=== PATIENT | male | born 1990 | race Caucasian/White ===

== ENCOUNTER 2022-08-21 18:06 | Emergency (ER) | payer OTHER ==
[~2022-08-21] VITALS: Ht 182.9 cm; Wt 120.0 kg
[2022-08-21 20:25] LABS: CHLORIDE 102 mEq/L (98-107)
[2022-08-21 20:57] LABS: BASOPHILS % 0.9 % (0.0-2.0); EOSINOPHILS % 1.4 % (0.0-5.0); HEMATOCRIT. 39.6 % (42.0-52.0); HEMOGLOBIN. 13.3 g/dL (14.0-18.0); LYMPHOCYTES % 25.3 % (20.0-50.0); MEAN CORPUSCULAR HEMOGLOBIN 30.2 pg (28.0-32.0); MEAN CORPUSCULAR VOLUME 89.5 fL (80.0-94.0); MEAN PLATELET VOLUME 6.6 fl (7.4-10.4); MONOCYTES % 11.8 % (2.0-8.0); NEUTROPHILS % 60.6 % (40.0-76.0); PLATELET 311 x1000/uL (130-400); RED BLOOD CELL COUNT 4.42 mill/uL (4.7-6.1); RED CELL DISTRIBUTION WIDTH 14.9 % (11.6-14.6)
[2022-08-21 22:00] VITALS: BP 123/60
== END 2022-08-21 23:20 | disposition home or self-care (01) ==
LOC: ER 18:06
DX: R68.89 Other general symptoms and signs (principal)
CPT/HCPCS: 36415; 71045; 80053; 85025; 99284

== ENCOUNTER 2024-01-01 14:29 | Emergency (ER) | payer MEDICAID, OTHER ==
[~2024-01-01] VITALS: Ht 190.5 cm; Wt 134.0 kg
[2024-01-01 14:30] VITALS: O2SAT 99
[2024-01-01 15:48] LABS: BASOPHILS % 0.6 % (0.0-2.0); EOSINOPHILS % 0.8 % (0.0-5.0); HEMATOCRIT. 38.7 % (42.0-52.0); HEMOGLOBIN. 12.7 g/dL (14.0-18.0); LYMPHOCYTES % 16.5 % (20.0-50.0); MEAN CORPUSCULAR HEMOGLOBIN 29.8 pg (28.0-32.0); MEAN CORPUSCULAR HGB CONC 32.8 g/dL (31.0-37.0); MEAN CORPUSCULAR VOLUME 90.9 fL (80.0-94.0); MEAN PLATELET VOLUME 6.7 fl (7.4-10.4); MONOCYTES % 9.7 % (2.0-8.0); NEUTROPHILS % 72.4 % (40.0-76.0); PLATELET 317 x1000/uL (130-400); RED BLOOD CELL COUNT 4.26 mill/uL (4.7-6.1); WHITE BLOOD COUNT 8.2 x1000/uL (4.5-11.0)
[2024-01-01 15:54] LABS: CHLORIDE 99 mEq/L (98-107); POTASSIUM 4.2 mEq/L (3.5-5.1); SODIUM 128 mEq/L (136-145)
[2024-01-01 15:55] LABS: CALCIUM 9.3 mg/dL (8.7-10.4); CARBON DIOXIDE 23 mEq/L (21-32)
[2024-01-01 16:00] LABS: CREATININE 0.9 mg/dL (0.6-1.3); GLUCOSE 95 mg/dL (70-105); UREA NITROGEN BLOOD 9 mg/dL (9-23)
[2024-01-01 16:19] LABS: CLARITY URINE CLEAR (CLEAR); COLOR URINE YELLOW (YELLOW); GLUCOSE URINE NEGATIVE (NEGATIVE); KETONES URINE NEGATIVE (NEGATIVE); LEUKOCYTE ESTERASE URINE NEGATIVE (NEGATIVE); NITRITE URINE NEGATIVE (NEGATIVE); OCCULT BLOOD URINE NEGATIVE (NEGATIVE); PH URINE 6.5 (4.5-8.0); PROTEIN URINE NEGATIVE (NEGATIVE); SPECIFIC GRAVITY URINE 1.014 (1.005-1.030)
[2024-01-01] MEDS: SODIUM CHLORIDE 0.9% 100 ML IV ONE (16:35)
[2024-01-01 16:37] LABS: *AMPHETAMINES SCREEN URINE NEGATIVE (NEGATIVE); *BARBITURATES SCREEN URINE NEGATIVE (NEGATIVE); *BENZODIAZEPINES SCREEN URINE NEGATIVE (NEGATIVE); *COCAINE SCREEN URINE NEGATIVE (NEGATIVE); CANNABINOID URINE SCREEN NEGATIVE (NEGATIVE); ECSTASY MDMA SCREEN URINE NEGATIVE (NEGATIVE); METHADONE URINE SCREEN NEGATIVE (NEGATIVE); OPIATES URINE SCREEN NEGATIVE (NEGATIVE); PHENCYCLIDINE URINE SCREEN NEGATIVE (NEGATIVE)
[2024-01-01 16:42] LABS: ETHANOL BLOOD < 10 mg/dL (<10)
[2024-01-01 19:14] VITALS: BP 139/91; PULSE 65; RESP 16; TEMP 37.11408; O2SAT 97
[2024-01-01] MEDS ORDERED: PATIENT'S OWN MEDICATION PO SCH (21:00)
[2024-01-01] MEDS ORDERED: OXCARBAZEPINE 300MG TABLET PO SCH (21:00)
[2024-01-01] MEDS ORDERED: TOPIRAMATE 100MG TABLET PO SCH (21:00)
[2024-01-02] MEDS ORDERED: PATIENT'S OWN MEDICATION PO SCH (09:00)
== END 2024-01-01 19:38 | disposition left against medical advice (07) ==
LOC: ER 14:29 → EDBEDREQ 16:15 → ER 19:38
DX: R56.9 Unspecified convulsions (principal); E87.1 Hypo-osmolality and hyponatremia
CPT/HCPCS: 80305; 80048; 81003; 80320; 82962; 83735; 85025; 36415; 96360; 99283; J7050; Z7610; G0480